=== PATIENT | female | born 1965 | race Caucasian/White ===

== ENCOUNTER 2017-06-10 10:40 | Outpatient (CLI) | payer OTHER ==
--- NOTE | 2017-06-10 14:41 | MMO ---
BILATERAL DIGITAL SCREENING MAMMOGRAMS: History: 52-year-old female presents for digital screening mammography. Comparison: 05-15-16, 04-12-15, 04-11-14, 03-26-, 03-16- This study is interpreted with the assistance of computer aided detection. FINDINGS: Scattered areas of fibroglandular density are noted bilaterally. Stable parenchymal density asymmetry in the left breast. No direct or indirect evidence of malignancy. IMPRESSION: BIRADS category 2 - benign findings. Continued routine screening. POS: [facility]
== END 2017-06-10 10:41 | disposition home or self-care (01) ==
LOC: MAMMO 10:40
PROVIDERS: ATTEND Obstetrics & Gynecology
DX: Z12.31 Encounter for screening mammogram for malignant neoplasm of breast (principal)
CPT/HCPCS: 77067; G0202

== ENCOUNTER 2018-06-29 10:48 | Outpatient (CLI) | payer BC | END 2018-06-29 10:49 | disposition home or self-care (01) | LOC: BICMAMMO 10:48 | PROVIDERS: ATTEND Obstetrics & Gynecology | DX: Z12.31 Encounter for screening mammogram for malignant neoplasm of breast (principal); Z80.3 Family history of malignant neoplasm of breast | CPT/HCPCS: 77063; 77067 ==

== ENCOUNTER 2020-10-05 13:35 | Outpatient (CLI) | payer BC | END 2020-10-05 13:36 | disposition home or self-care (01) | LOC: BICMAMMO 13:35 | PROVIDERS: ATTEND Physician Assistant | DX: Z12.31 Encounter for screening mammogram for malignant neoplasm of breast (principal) | CPT/HCPCS: 77063; 77067 ==